=== PATIENT | female | born 1980 | race Caucasian/White ===

== ENCOUNTER 2016-09-01 21:41 | Emergency (ER) | payer OTHER ==
[~2016-09-01] VITALS: Ht 170.2 cm; Wt 90.7 kg
[~2016-09-01 21:41] MED LIST: ESCITALOPRAM20 MG PO; HYDROCODONE/ACE1 TA1 PO; SEASONIQUE 30 M1 TAB PO
[2016-09-01 21:55] VITALS: BP 132/76
[2016-09-01] MEDS ORDERED: LIDODERM1 EACH TOP (22:56)
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
== END 2016-09-01 23:17 ==
LOC: ERH 21:41
DX: M54.5 Low back pain (principal); M79.604 Pain in right leg; V43.52XA Car driver injured in collision with other type car in traffic accident, initial encounter; Y92.488 Other paved roadways as the place of occurrence of the external cause